=== PATIENT | male | born 1960 | race Caucasian/White ===

== ENCOUNTER → 2024-10-03 13:50 | Outpatient (REF) | payer MEDICARE, SELFPAY | LOC: DHSLP 13:50 | PROVIDERS: ATTENDING PHYSICIAN Internal Medicine Critical Care Medicine; FAMILY PHYSICIAN Family Medicine | DX: G47.33 Obstructive sleep apnea (adult) (pediatric) (principal) | CPT/HCPCS: 95800 ==